=== PATIENT | female | born 1950 | race Caucasian/White ===

== ENCOUNTER 2017-08-28 11:17 | Emergency (ER) | payer MEDICARE, OTHER ==
[2017-08-28] MEDS ORDERED: Acetaminophen 325 MG Tab PO ONE (11:28)
--- NOTE | 2017-08-28 11:29 | EDM.PDOC ---
ED HPI GENERAL MEDICAL PROBLEM - General Chief Complaint: Head Injury Stated Complaint: HEAD INJURY Time Seen by Provider: 08/28/17 11:21 Source of Information: Reports: Patient History Limitations: Reports: No Limitations - History of Present Illness INITIAL COMMENTS - FREE TEXT/NARRATIVE: Patient is here for evaluation of a head injury that occurred around 9:00 this morning. Upon arrival due to the mechanism of injury, minor was called at 11:20 AM patient seen at that time. Patient states that she was in [place] dropping off her recycling and she leaned over the dumpster to make sure that it went where she was intending to throw it and the lid of the dumpster dropped from her extended hand and hit her on the posterior right side of the head. Patient states that she did not use consciousness at all. She states that she did have severe pain. She was also initially a bit dizzy and disoriented but states that this passed fairly quickly. She drove for [place] to [place] where she talked to the lady at [place] suggested she come to the emergency room. Her [id number] then drove her for [place] to [place]. Upon arrival patient is complaining of headache which is fairly localized to the right posterior head and some numbness and tingling in her upper extremities. She denies any neck pain. She states she feels a little bit dizzy and "off". She has no chronic medical conditions. She is not on any medications on a daily basis. She does take some vitamins. Posterior Head Pain Score (Numeric/FACES): 5 - Related Data Allergies Allergy/AdvReac Type Severity Reaction Status Date / Time No Known Allergies Allergy Verified 08/28/17 11:28 Home Meds: Home Meds Multivitamin with Minerals [Multiple Vitamin] 1 tab PO DAILY 08/28/17 [History] Ubidecarenone [Co Q-10] 1 tab PO DAILY 08/28/17 [History] Vitamin E 1,000 mg PO DAILY 08/28/17 [History] ED ROS GENERAL - Review of Systems Review Of Systems: See Below Constitutional: Reports: No Symptoms HEENT: Denies: Ear Discharge, Hearing Loss, Vertigo, Vision Change Respiratory: Reports: No Symptoms Cardiovascular: Reports: No Symptoms GI/Abdominal: Reports: No Symptoms Musculoskeletal: Denies: Neck Pain, Muscle Stiffness Skin: Reports: Wound (Posterior head) Neurological: Reports: Dizziness, Headache, Numbness, Tingling. Denies: Confusion, Change in Speech Psychiatric: Denies: Agitation, Anxiety, Confusion ED EXAM, HEAD INJURY - Physical Exam Exam: See Below Exam Limited By: No Limitations General Appearance: Alert, WD/WN, No Apparent Distress Head: Normocephalic, Scalp Abrasions, Scalp Hematoma Eyes: Bilateral Eye: PERRL Ears: Normal External Exam, Normal Canal, Normal TMs, Other (Decreased hearing, wears bilateral hearing aids) Nose: Normal Inspection, Normal Mucousa, No Blood Throat/Mouth: Normal Inspection, Normal Oropharynx Neck: Non-Tender, Full Range of Motion Respiratory: No Respiratory Distress, Lungs Clear Cardiovascular: Regular Rate, Rhythm, No Murmur Back Exam: Normal Inspection. No: Vertebral Tenderness Extremities: Normal Inspection, Normal Range of Motion, Non-Tender, Normal Capillary Refill Neurologic: No Motor/Sensory Deficits, Normal Mood/Affect, Oriented x 3 Skin: Normal Color, Warm/Dry, Other (Superficial abrasion to right posterior scalp, small measuring 0.5cm. Surrounding hematoma 2.5cm diameter. ) - Heath Coma Score Best Eye Response (Heath): (4) Open Spontaneously Best Verbal Response (Mcdonough): (5) Oriented Best Motor Response (Heath): (6) Obeys Commands Course - Vital Signs Last Recorded V/S: Last Vital Signs Temp 98.1 F 08/28/17 11:23 Pulse 69 08/28/17 11:23 Resp 20 08/28/17 11:23 BP 161/98 H 08/28/17 11:23 Pulse Ox 97 08/28/17 11:23 - Orders/Labs/Meds Meds: Medications Discontinued Medications Generic Name Dose Route Start Last Admin Trade Name Altafq PRN Reason Stop Dose Admin Acetaminophen 650 mg 08/28/17 11:28 08/28/17 11:36 Tylenol PO 08/28/17 11:29 650 mg NOW ONE Administration - Re-Assessments/Exams Free Text/Narrative Re-Assessment/Exam: Patient is alert and oriented. Initial neurologic exam is completely normal. Superficial abrasion was cleaned, no dressing or wound closure indicated. Patient initially offered 650mg Tylenol, she declined and chose to only take 325 mg. Patient states that her headache completely resolved with this in approximately 30 minutes. At that time second neurologic exam was performed and again completely normal. Patient will be discharged home. her sister in law will be giving her a ride and be with her today. I did advise patient that if she should have any changes in behavior or speech, worsening headache or other any other symptom she feels is abnormal but she said certainly return to the emergency room. She may have a mild headache today and tomorrow can take Tylenol for this. Advised her if headache should persist and she will need to follow-up with her PCP as well. 08/28/17 12:26 Departure - Departure Time of Disposition: 12:29 Disposition: Home, Self-Care 01 Condition: Good Clinical Impression: Concussion with no loss of consciousness Head injury Qualifiers: Encounter type: initial encounter Qualified Code(s): S09.90XA - Unspecified injury of head, initial encounter Scalp abrasion Qualifiers: Encounter type: initial encounter Qualified Code(s): S00.01XA - Abrasion of scalp, initial encounter - Discharge Information Instructions: Head Injury, Adult, [id number] Referrals: Phil Vargas MD [Primary Care Provider] - Forms: ED Department Discharge Additional Instructions: You were evaluated in the emergency room today for a head injury. You have a mild concussion. I recommend that you take it easy today. Take Tylenol 325-650 mg every 4 hours as needed for headache. If headaches do not resolve over the next 48 hours and you certainly should follow-up with her primary provider. If you should have any changes in behavior or vision or any worsening/severe headache or anything you feel is abnormal, certainly return to the emergency room.
== END 2017-08-28 12:50 | disposition home or self-care (01) ==
LOC: JD.ED 11:17
DX: S06.0X0A Concussion without loss of consciousness, initial encounter (principal); S00.03XA Contusion of scalp, initial encounter; S00.01XA Abrasion of scalp, initial encounter; W22.8XXA Striking against or struck by other objects, initial encounter
CPT/HCPCS: 99283; A9270